=== PATIENT | male | born 1930 | race Hispanic/Latino ===

== ENCOUNTER 2018-03-19 09:18 | Outpatient (CLI) | payer MEDICARE ==
--- NOTE | 2018-03-19 14:34 | PET ---
PET CT: HISTORY: 87-year-old male with bladder cancer. Exam requested for initial staging. TECHNIQUE: PET scanning with CT attenuation correction was performed from the base of the brain through the prox imal thighs following the intravenous administration of 12 mCi F18-FDG in the left antecubital fossa. Imaging was performed after an uptake interval of 62 minutes. COMPARISON: None. FINDINGS: There are hypermetabolic lymph nodes in the chest, including the mediastinum and right hilar regions. SUVs in the mediastinal lymph nodes are 4.7 in the right paratracheal, 3.2 in the AP window, and 4 i n the subcarinal lymph nodes, and 3.5 in the right hilum. No evan hypermetabolism is seen in the neck, axilla, abdomen, pelvis, or inguinal regions. No hyperm etabolic pulmonary nodules, liver, adrenal, or skeletal lesions are identified. There is physiologic activity in the GI and tracts, and the visualized portions of the brain. The CT scan used for attenuation correction demonstrates no evidence of pleural effusions or ascites. IMPRESSION: Findings are suspicious for mediastinal and right hilar lymph evan metastases. POS: [facility]
== END 2018-03-19 09:19 | disposition home or self-care (01) ==
LOC: PET 09:18
PROVIDERS: ATTEND Internal Medicine Hematology & Oncology
DX: C67.9 Malignant neoplasm of bladder, unspecified (principal)
CPT/HCPCS: 78815; A9552

== ENCOUNTER 2018-05-03 13:13 | Emergency (ER) | payer MEDICARE ==
[2018-05-03 14:12] LABS: Bilirubin Negative (Negative); Blood, Urine Negative (Negative); Clarity CLEAR (Clear); Glucose, Urine (Dipstick) Negative (Negative); Leukocyte Negative (Negative); Nitrite Negative (Negative); Protein, Urine (Dipstick) Negative (Neg-Trace); Specific Gravity, Urine 1.006 (1.002-1.036)
[2018-05-03 14:22] LABS: Hemoglobin 8.7 g/dL (14.0-18.0); Mean Corpuscular HGB CONC 35.6 g/dL (32.0-36.0); Mean Corpuscular Hemoglobin 30.5 pg (27.0-31.0); Mean Corpuscular Volume 85.7 fL (78.0-98.0); Mean Platelet Volume 6.7 fL (7.4-10.4); Platelet Count 213 thou/uL (130-400); Red Blood Cell (RBC) Count 2.84 mill/uL (4.70-6.10); White Blood Cell (WBC) Count 3.5 thou/uL (4.8-10.8)
[2018-05-03 14:38] LABS: ALT (SGPT) 15 U/L (8-55); AST (SGOT) 22 U/L (5-34); Albumin 3.6 g/dL (3.4-4.8); Alkaline Phosphatase 74 U/L (40-150); Anion Gap 15 mmol/L (10-20); BUN (Urea Nitrogen) 14 mg/dL (8.4-25.7); Bilirubin, Total 1.6 mg/dL (0.2-1.2); Calc. Creatinine Clearance 0 mL/min (70-130); Calcium 8.2 mg/dL (7.8-10.44); Carbon Dioxide 23 mmol/L (23-31); Chloride 98 mmol/L (98-107); Estimated GFR-MDRD 81; Globulin 2.6 g/dL (2.4-3.5); Glucose 178 mg/dL (83-110); Potassium 3.9 mmol/L (3.5-5.1); Protein, Total 6.2 g/dL (5.8-8.1); Sodium 132 mmol/L (136-145)
[2018-05-03 14:50] LABS: Band 14 % (5-11); Dohle Bodies SLIGHT; Lymphocytes 5 % (21-51); MDiff Complete? YES; Monocytes 13 % (0-10); Neutrophil 68 % (42-75); PLT Morphology Comment Appears Adequate; Polychromasia SLIGHT = 2-3 cells (100X) (0-2/hpf); Toxic Granulation SLIGHT
== END 2018-05-03 15:44 | disposition home or self-care (01) ==
LOC: ERS 13:13
DX: N13.9 Obstructive and reflux uropathy, unspecified (principal); E11.9 Type 2 diabetes mellitus without complications; I10 Essential (primary) hypertension; Z79.899 Other long term (current) drug therapy
CPT/HCPCS: 36415; 51702; 80053; 81003; 82248; 83615; 84100; 84550; 85025

== ENCOUNTER 2018-05-11 11:26 | Day surgery (SDC) | payer MEDICARE ==
[2018-05-11] MEDS ORDERED: Sodium Chloride 0.9% 40 ML ONE (12:18)
[2018-05-11] MEDS ORDERED: Acetaminophen 500 MG TAB PO SCH (12:30)
[2018-05-11] MEDS ORDERED: diphenhydrAMINE 25 MG CAP PO SCH (12:30)
[2018-05-11 17:54] LABS: Hemoglobin 8.1 g/dL (14.0-18.0)
[2018-05-11 20:50] VITALS: BP 122/60; TEMP 99
== END 2018-05-11 21:09 | disposition home or self-care (01) ==
LOC: ONC/OP 11:26
PROVIDERS: ATTEND Internal Medicine Medical Oncology
DX: D64.9 Anemia, unspecified (principal); D69.6 Thrombocytopenia, unspecified
CPT/HCPCS: 36430; 77014; 77336; 77412; 77417; 85014; 85018; 86850; 86900; 86901; A4216; P9016

== ENCOUNTER 2018-07-10 12:26 | Outpatient (CLI) | payer MEDICARE ==
--- NOTE | 2018-07-10 16:25 | PET ---
PET WITH CT SKULL TO MID THIGH: CLINICAL HISTORY: Bladder cancer. COMPARISON: Reference is made of prior PET scan dated 03/19/2018. RADIOPHARMACEUTICAL: 11.3 mCi fluorine-FDG IV. FINDINGS: When comparing to prior PET, there has been slight interval decrease with regard to hypermetabolic ac tivity involving thoracic lymph nodes involving the hilar regions and mediastinum. The hypermetaboli c lymph node with the greatest SUV currently resides within the right paratracheal region with an SUV of 3.4, compared to prior measurement of 4.7, demonstrating an interval decrease of metabolic activi ty. Since the prior imaging exam, there has been interval development of prominent wall thickening and in flammation about the rectosigmoid colon. There is circumferential wall prominence which is hypermeta bolic with an SUV maximum of 5.1. There are no new hypermetabolic lesions of the abdomen otherwise demonstrated. Evaluation of osseous structures reveals no hypermetabolic lesion. There is appropriate biodistribution of radiotracer activity. Extruded activity is present within th e genitourinary system which does limit evaluation for potential hypermetabolic lesions of the bladde r. There is circumferential mild wall thickening of the urinary bladder with a mild degree of perive sicular fat stranding and there is mild heterogeneity of the adjacent prostate gland. There are scattered colonic diverticula. Vascular disease is present. Since the prior exam, there has been development of a mild degree of left hydroureteronephrosis witho ut a discernible calculus seen. IMPRESSION: 1. Interval decrease of hypermetabolic activity with regard to mediastinal and hilar lymph nodes whi ch do remain hypermetabolic and, therefore, may relate to interval response to therapy. 2. Interval development of protocolitis as discussed above. This could relate to a post-radiation i nfectious/inflammatory process, rather than neoplasm, given the interval change [facility]. Recommend clinical correlation and management in this regard and aft er completion of treatment regimen, followup imaging may be confirmed to document expected clearing o f the imaging findings. 3. Interval development of mild left hydroureteronephrosis without a discernible obstructive calculu s. This may relate sequella of radiation ureteritis/cystitis to the patient's history of bladder jaylen plasm. There is prominent wall thickening of the urinary bladder which may relate to infiltration by neoplasm and may, therefore, involve the left ureterovesical junction region as source for obstructi ve pathology. Hypermetabolic activity of this region cannot be evaluated due to the degree of excret ed activity within the urinary bladder which thus precludes detection of pathologic hypermetabolic ac tivity in this region. Telephone call with findings placed to the patient's physician, Dr. Valentina Morris, at the time of inte rpretation 1420 hours 07/10/2018. CODE CR POS: [facility]
== END 2018-07-10 12:27 | disposition home or self-care (01) ==
LOC: PET 12:26
PROVIDERS: ATTEND Internal Medicine Hematology & Oncology
DX: C67.9 Malignant neoplasm of bladder, unspecified (principal); K51.30 Ulcerative (chronic) rectosigmoiditis without complications; N13.30 Unspecified hydronephrosis; N32.89 Other specified disorders of bladder
CPT/HCPCS: 78815; A9552

== ENCOUNTER 2019-01-14 09:46 | Outpatient (CLI) | payer MEDICARE ==
--- NOTE | 2019-01-14 10:51 | CT ---
CT of the chest and abdomen with IV contrast INDICATION: History of bladder cancer Contrast: 70 cc of [id number] COMPARISON: Prior PET/CT dated 07/10/2018. FINDINGS: CHEST: There is scattered emphysema. No suspicious pulmonary nodule or pleural effusion is identified . There is a mildly prominent pretracheal lymph node is stable in size measuring 9 mm. Calcified lymph node within the right paratracheal region is stable. No new pathologically enlarged lymph node is evident. There are scattered vascular calcifications. ABDOMEN: There is a small hiatal hernia. There are scattered calcified granuloma within the liver and spleen. The pancreas and adrenal glands are normal appearing. There is been interval placement of a left ureteral stent with improvement in left-sided hydronephrosis. No focal renal lesion is noted. No free fluid or enlarged lymph nodes are seen within the upper abdomen. There are scattered diverticula involving the colon with a mild amount of retained stool. There is a chronic wedge compression abnormality of L3. 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 There is ankylosis of T11 and T10. IMPRESSION: 1. Stable size of the mildly prominent pretracheal lymph node measuring up to 9 mm. No new enlarged l ymphadenopathy is evident. 2. Interval placement of a left ureteral stent with improvement in the left-sided hydronephrosis. 3. Chronic L3 wedge compression abnormality.
[2019-01-14] MEDS ORDERED: Iopamidol 370 76% 100 ML VIAL ONE (15:01)
== END 2019-01-14 09:47 | disposition home or self-care (01) ==
LOC: BICCT 09:46
PROVIDERS: ATTEND Internal Medicine Hematology & Oncology
DX: C67.8 Malignant neoplasm of overlapping sites of bladder (principal); N13.30 Unspecified hydronephrosis; Z96.0 Presence of urogenital implants
CPT/HCPCS: 71260; 74160; 82565; Q9967

== ENCOUNTER 2019-07-03 08:59 | Outpatient (CLI) | payer MEDICARE ==
[2019-07-03] MEDS ORDERED: ISOVUE-370 76%-LOCM 1 ML ONE (10:11)
--- NOTE | 2019-07-03 13:17 | CT ---
CT OF CHEST AND ABDOMEN PERFORMED WITH INTRAVENOUS CONTRAST ENHANCEMENT: HISTORY: Followup of bladder cancer. COMPARISON: The 01/14/2019 study. FINDINGS: Calcified granuloma seen in the left upper lobe stable. No suspicious pulmonary nodules or pleural e ffusions. Some reticular changes in the bases are probably on the basis of some scarring. There is a small but slightly prominent right paratracheal and pretracheal nodes present, unchanged i n size, the largest again being more of a precarinal node measuring approximately 10 mm in short axis dimension. There is calcification associated with some hilar lymph nodes, this appears stable. No significant axillary adenopathy. CT OF ABDOMEN PERFORMED WITH CONTRAST: There are diffuse fatty changes of the liver. A small hiatal hernia is present. The spleen and panc reas regions are unremarkable. Gallbladder has been removed. Right and left adrenal glands are normal. The right and left kidneys are normal in size. A left ure teral stent is present. No hydronephrosis demonstrated. There is no significant paraaortic or mesen teric adenopathy. The infrarenal aorta is minimally aneurysmal measuring 3.1 cm. Some colonic diver ticulosis is noted. IMPRESSION: 1. Stable overall exam. The mediastinal lymph nodes in the right paratracheal, precarinal, and aort icopulmonary window region appear stable. Hilar nodes also appear stable. 2. Small hiatal hernia. 3. Fatty change of the liver. 4. A 3.1 infrarenal abdominal aortic aneurysm. POS: [facility]
== END 2019-07-03 09:00 | disposition home or self-care (01) ==
LOC: BICCT 08:59
PROVIDERS: ATTEND Internal Medicine Hematology & Oncology
DX: C67.8 Malignant neoplasm of overlapping sites of bladder (principal); K44.9 Diaphragmatic hernia without obstruction or gangrene; K76.0 Fatty (change of) liver, not elsewhere classified; I71.4 Abdominal aortic aneurysm, without rupture
CPT/HCPCS: 71260; 74160; 82565; Q9966

== ENCOUNTER 2019-11-05 06:21 | Outpatient (CLI) | payer MEDICARE ==
[2019-11-05 15:23] LABS: Mean Corpuscular HGB CONC 34.2 g/dL (32.0-36.0); Mean Corpuscular Hemoglobin 30.2 pg (27.0-31.0); Mean Corpuscular Volume 88.4 fL (78.0-98.0); Platelet Count 220 thou/uL (130-400); RBC Distribution Width 12.7 % (11.5-14.5); Red Blood Cell (RBC) Count 4.32 mill/uL (4.70-6.10); White Blood Cell (WBC) Count 6.8 thou/uL (4.8-10.8)
[2019-11-05 15:32] LABS: Bacteria/HPF None Seen HPF (None Seen); Bilirubin Negative (Negative); Blood, Urine Negative (Negative); Clarity Clear (Clear); Glucose, Urine (Dipstick) Normal (Negative); Leukocyte 75 Leu/uL (Negative); Nitrite Negative (Negative); Protein, Urine (Dipstick) Negative (Neg-Trace); RBC/HPF 0-3 HPF (0-3); Squamous Epithelial None Seen HPF (0-3); WBC/HPF 0-3 HPF (0-3)
[2019-11-05 15:40] LABS: Anion Gap 14 mmol/L (10-20); BUN (Urea Nitrogen) 21 mg/dL (8.4-25.7); Calc. Creatinine Clearance 0 mL/min (70-130); Calcium 9.4 mg/dL (7.8-10.44); Carbon Dioxide 26 mmol/L (23-31); Chloride 103 mmol/L (98-107); Estimated GFR-MDRD 68; Glucose 170 mg/dL (83-110); Potassium 3.9 mmol/L (3.5-5.1); Sodium 139 mmol/L (136-145)
== END 2019-11-05 06:22 | disposition home or self-care (01) ==
LOC: LABBT 06:21
PROVIDERS: ATTEND Urology
DX: Z01.812 Encounter for preprocedural laboratory examination (principal); N13.5 Crossing vessel and stricture of ureter without hydronephrosis
CPT/HCPCS: 80048; 81001; 85027; 87086; 88112; 93005; 93010

== ENCOUNTER 2019-11-12 05:38 | Day surgery (SDC) | payer MEDICARE ==
[2019-11-05 14:24] VITALS: BMI 26.6
[2019-11-12] MEDS ORDERED: Levofloxacin 500 mg/D5W 100 ml Premix Bag ONE (06:31)
[2019-11-12] MEDS ORDERED: Fentanyl 100 MCG/2 ML VIAL ONE (06:52)
[2019-11-12] MEDS ORDERED: Iothalamate Meglumine 60% 50 ML VIAL FS ONE (07:52)
[2019-11-12] MEDS ORDERED: Phenazopyridine HCl 97.5 MG TABLET ONE (09:05)
[2019-11-12] MEDS ORDERED: Ketorolac Tromethamine 30 MG/ML VIAL ONE (09:05)
[2019-11-12] MEDS ORDERED: Oxybutynin 5 MG TAB ONE (09:05)
--- NOTE | 2019-11-12 10:07 | RAD ---
LEFT RETROGRADE PYELOGRAM: HISTORY: Bladder cancer. COMPARISON: Abdomen and chest CT scan, 07/03/2019. FINDINGS: Seven portable fluoroscopic spot images performed during stent placement. Images document left urete ral stent placement. IMPRESSION: Left ureteral stent placement. POS: [facility]
[2019-11-12] MEDS ORDERED: PROPOFOL 200 MG/20 ML VIAL ONE (10:13)
[2019-11-12] MEDS ORDERED: Ondansetron PF 4 MG/2 ML Vial ONE (10:13)
--- NOTE | 2019-11-12 11:50 | OP ---
DATE OF PROCEDURE: 11/12/2019 PREOPERATIVE DIAGNOSES: Left ureteral stricture, history of bladder cancer. POSTOPERATIVE DIAGNOSES: Left ureteral stricture, history of bladder cancer. PROCEDURES PERFORMED: Cystoscopy with left retrograde pyelogram and replacement of 6 x 24 double-J ureteral stent. ANESTHESIA: MAC. COMPLICATIONS: None. SPECIMEN: None. BLOOD LOSS: None. DESCRIPTION OF PROCEDURE: After informed consent, the patient was taken to the operating room and transferred to the table. Anesthesia was established. A time-out was performed showing correct patient, site, and procedure. Preoperative antibiotics were administered. He was prepped and draped in the lithotomy position. The rigid cystoscope was advanced through the urethra noting a normal course and caliber of the urethra into the prostatic urethra noting coapting lateral lobes with no median lobe or high bladder neck. The bladder was then entered and systematically examined noting moderate trabeculation with no obvious diverticula. There were no mucosal abnormalities. The right ureteral orifice was normal in appearance. The left ureteral stent was grasped and brought out through the urethral meatus. A wire was passed through this into the renal pelvis. A Pollack catheter was passed over this into the mid ureter, and a retrograde pyelogram was performed showing good filling of the ureter and renal pelvis. The wire was then replaced, and a 6 x 24 double-J ureteral stent was passed over the wire with a curl in the kidney and curl in the bladder under fluoroscopic guidance. The bladder was drained. The patient was then awoken from anesthesia, transferred back to his hospital bed, and taken to PACU in stable condition, where he will discharge to home upon recovery. Job ID: [id number] [id number]
== END 2019-11-12 09:30 | disposition home or self-care (01) ==
LOC: SDC 05:38
PROVIDERS: ATTEND Urology
PROC: 0T778DZ Dilation of Left Ureter with Intraluminal Device, Via Natural or Artificial Opening Endoscopic (ICD-10-PCS; principal; 2019-11-12)
PROC: 0TP98DZ Removal of Intraluminal Device from Ureter, Via Natural or Artificial Opening Endoscopic (ICD-10-PCS; 2019-11-12)
DX: N13.5 Crossing vessel and stricture of ureter without hydronephrosis (principal); N40.1 Benign prostatic hyperplasia with lower urinary tract symptoms; E11.9 Type 2 diabetes mellitus without complications; E78.00 Pure hypercholesterolemia, unspecified; K21.9 Gastro-esophageal reflux disease without esophagitis; I10 Essential (primary) hypertension; Z85.51 Personal history of malignant neoplasm of bladder; Z79.84 Long term (current) use of oral hypoglycemic drugs; Z79.899 Other long term (current) drug therapy; Z88.5 Allergy status to narcotic agent
CPT/HCPCS: 74420; C1758; C1769; J1885; J1956; J3010

== ENCOUNTER 2020-06-16 12:39 | Emergency (ER) | payer MEDICARE ==
[2020-06-16 13:15] LABS: #Eosinphils 0.1 thou/uL (0.0-0.7); #Lymphocytes 0.8 thou/uL (1.20-3.40); #Monocytes 0.7 thou/uL (0.11-0.59); #Neutrophils 9.5 thou/uL (1.40-6.50); %Basophils 0.1 % (0.0-1.0); %Eosinophils 0.8 % (0.0-10.0); %Lymphocytes 7.3 % (21.0-51.0); %Neutrophils 85.8 % (42.0-75.0); Hemoglobin 13.5 g/dL (14.0-18.0); Mean Corpuscular HGB CONC 33.8 g/dL (32.0-36.0); Mean Corpuscular Volume 88.7 fL (78.0-98.0); Mean Platelet Volume 9.2 fL (7.4-10.4); Platelet Count 242 thou/uL (130-400); RBC Distribution Width 12.6 % (11.5-14.5); Red Blood Cell (RBC) Count 4.48 mill/uL (4.70-6.10)
[2020-06-16 13:37] LABS: ALT (SGPT) 24 U/L (8-55); AST (SGOT) 22 U/L (5-34); Albumin 4.6 g/dL (3.4-4.8); Alkaline Phosphatase 111 U/L (40-110); Anion Gap 14 mmol/L (10-20); BUN (Urea Nitrogen) 29 mg/dL (8.4-25.7); Bilirubin, Total 0.8 mg/dL (0.2-1.2); Calc. Creatinine Clearance 0 mL/min (70-130); Calcium 9.6 mg/dL (7.8-10.44); Carbon Dioxide 21 mmol/L (23-31); Chloride 106 mmol/L (98-107); Estimated GFR-MDRD 65; Globulin 3.2 g/dL (2.4-3.5); Glucose 153 mg/dL (83-110); Protein, Total 7.8 g/dL (5.8-8.1); Sodium 137 mmol/L (136-145)
== END 2020-06-16 14:22 | disposition home or self-care (01) ==
LOC: ERS 12:39
DX: R19.7 Diarrhea, unspecified (principal); R11.2 Nausea with vomiting, unspecified; E11.9 Type 2 diabetes mellitus without complications; I10 Essential (primary) hypertension; Z79.899 Other long term (current) drug therapy
CPT/HCPCS: 36415; 80053; 83605; 85025; 99284

== ENCOUNTER 2021-01-06 09:29 | Outpatient (CLI) | payer MEDICARE ==
[2021-01-06 11:09] LABS: Hemoglobin 11.6 g/dL (13.5-17.5); Mean Corpuscular Hemoglobin 29.2 pg (27.0-33.0); Mean Corpuscular Volume 88.4 fl (81.2-95.1); Mean Platelet Volume 11.2 fl (7.4-10.4); Platelet Count 222 10x3/uL (150-450); RBC Distribution Width 13.3 % (11.5-14.5); Red Blood Cell (RBC) Count 3.97 10x6/uL (4.32-5.72); White Blood Cell (WBC) Count 5.5 10x3/uL (3.5-10.5)
[2021-01-06 11:34] LABS: Anion Gap 15 mmol/L (10-20); BUN (Urea Nitrogen) 21 mg/dL (8.4-25.7); Calc. Creatinine Clearance 0 mL/min (70-130); Calcium 8.9 mg/dL (7.8-10.44); Carbon Dioxide 26 mmol/L (23-31); Chloride 104 mmol/L (98-107); Glucose 139 mg/dL (83-110); Potassium 4.5 mmol/L (3.5-5.1); Sodium 140 mmol/L (136-145)
[2021-01-06 17:54] LABS: SARS-CoV-2 PCR by NAA Not Detected (NotDetected)
== END 2021-01-06 09:30 | disposition home or self-care (01) ==
LOC: LABBT 09:29
PROVIDERS: ATTEND Urology
DX: Z01.818 Encounter for other preprocedural examination (principal); Z20.822 Contact with and (suspected) exposure to COVID-19; C67.0 Malignant neoplasm of trigone of bladder; R35.0 Frequency of micturition
CPT/HCPCS: 80048; 85027; 93005; U0003; U0005; 87635; 93010

== ENCOUNTER 2021-01-08 08:28 | Day surgery (SDC) | payer MEDICARE ==
[2021-01-07 09:55] VITALS: BMI 28.0
[2021-01-08] MEDS ORDERED: Levofloxacin 500 mg/D5W 100 ml Premix Bag ONE (10:17)
[2021-01-08] MEDS ORDERED: Fentanyl 100 MCG/2 ML VIAL ONE (11:32)
[2021-01-08] MEDS ORDERED: Ondansetron PF 4 MG/2 ML Vial ONE (11:36)
[2021-01-08] MEDS ORDERED: Lidocaine 1% PF 5 ML VIAL ONE (11:36)
[2021-01-08] MEDS ORDERED: Dexamethasone 20 MG/5 ML VIAL ONE (11:36)
[2021-01-08] MEDS ORDERED: PROPOFOL 200 MG/20 ML VIAL ONE (11:36)
[2021-01-08] MEDS ORDERED: Iothalamate Meglumine 60% 50 ML VIAL FS ONE (11:43)
[2021-01-08] MEDS ORDERED: Oxybutynin 5 MG TAB ONE (12:16)
[2021-01-08] MEDS ORDERED: Phenazopyridine HCl 100 MG TAB ONE (12:16)
== END 2021-01-08 13:35 | disposition home or self-care (01) ==
LOC: SDC 08:28
PROVIDERS: ATTEND Urology
PROC: 0TJ98ZZ Inspection of Ureter, Via Natural or Artificial Opening Endoscopic (ICD-10-PCS; principal; 2021-01-08)
PROC: 0TP98DZ Removal of Intraluminal Device from Ureter, Via Natural or Artificial Opening Endoscopic (ICD-10-PCS; 2021-01-08)
PROC: BT1FZZZ Fluoroscopy of Left Kidney, Ureter and Bladder (ICD-10-PCS; 2021-01-08)
DX: N13.5 Crossing vessel and stricture of ureter without hydronephrosis (principal); N40.1 Benign prostatic hyperplasia with lower urinary tract symptoms; R35.1 Nocturia; K21.9 Gastro-esophageal reflux disease without esophagitis; E11.9 Type 2 diabetes mellitus without complications; E78.00 Pure hypercholesterolemia, unspecified; I10 Essential (primary) hypertension; E78.5 Hyperlipidemia, unspecified; Z79.899 Other long term (current) drug therapy; Z85.51 Personal history of malignant neoplasm of bladder; Z88.5 Allergy status to narcotic agent
CPT/HCPCS: 74420; J1100; J1956; J2405; J2704; J3010; Q9961

== ENCOUNTER 2021-02-11 13:01 | Outpatient (CLI) | payer MEDICARE | END 2021-02-11 13:02 | disposition home or self-care (01) | LOC: BICULT 13:01 | PROVIDERS: ATTEND Urology | DX: C67.4 Malignant neoplasm of posterior wall of bladder (principal); N13.5 Crossing vessel and stricture of ureter without hydronephrosis; N13.30 Unspecified hydronephrosis | CPT/HCPCS: 76770 ==

== ENCOUNTER 2021-03-05 08:42 | Outpatient (CLI) | payer MEDICARE ==
[2021-03-05] MEDS ORDERED: Iopamidol 370 76% 100 ML VIAL ONE (09:58)
== END 2021-03-05 08:43 | disposition home or self-care (01) ==
LOC: CT 08:42
PROVIDERS: ATTEND Internal Medicine Hematology & Oncology
DX: C67.8 Malignant neoplasm of overlapping sites of bladder (principal); N28.89 Other specified disorders of kidney and ureter; N13.30 Unspecified hydronephrosis; K57.30 Diverticulosis of large intestine without perforation or abscess without bleeding; I51.7 Cardiomegaly; K76.0 Fatty (change of) liver, not elsewhere classified
CPT/HCPCS: 74177; Q9967

== ENCOUNTER 2021-05-28 12:33 | Outpatient (CLI) | payer MEDICARE | END 2021-05-28 12:34 | disposition home or self-care (01) | LOC: BICULT 12:33 | PROVIDERS: ATTEND Urology | DX: N40.1 Benign prostatic hyperplasia with lower urinary tract symptoms (principal); N13.30 Unspecified hydronephrosis | CPT/HCPCS: 76770 ==